=== PATIENT | female | born 1970 | race Caucasian/White ===

== ENCOUNTER → 2024-07-12 16:51 | Outpatient (REF) | payer BC, SELFPAY | LOC: HWRAD 16:51 | PROVIDERS: ATTENDING PHYSICIAN Family Medicine | DX: S69.92XA Unspecified injury of left wrist, hand and finger(s), initial encounter (principal) | CPT/HCPCS: 73130 ==

== ENCOUNTER → 2025-01-16 11:47 | Outpatient (REF) | payer BC, SELFPAY | LOC: HWRAD 11:47 | PROVIDERS: ATTENDING PHYSICIAN Orthopaedic Surgery Hand Surgery; FAMILY PHYSICIAN Family Medicine; REFERRING PHYSICIAN Internal Medicine Rheumatology | DX: S62.16 Fracture of pisiform (principal); M81.0 Age-related osteoporosis without current pathological fracture | CPT/HCPCS: 73200 ==

== ENCOUNTER → 2025-08-06 12:18 | Outpatient (REF) | payer BC, SELFPAY | LOC: RAD 12:18 | PROVIDERS: ATTENDING PHYSICIAN Physician Assistant | DX: R10.9 Unspecified abdominal pain (principal) | CPT/HCPCS: 74177; Q9967 ==